=== PATIENT | female | born 1950 | race Hispanic/Latino ===

== ENCOUNTER 2020-07-22 10:13 | Observation (INO) | payer OTHER ==
[~2020-07-22] VITALS: Ht 157.5 cm; Wt 61.2 kg
[~2020-07-22 10:13] MED LIST: LIPITOR40 MG; NOVOLIN N100 UNIT/1
[2020-07-22] MEDS ORDERED: ASPIRIN 81 MG CHEW TAB PO ONE (10:30)
[2020-07-22] MEDS ORDERED: PIOGLITAZONE HC45 MG PO (10:54)
[2020-07-22] MEDS ORDERED: CLOPIDOGREL75 MG PO (10:54)
[2020-07-22] MEDS ORDERED: CARVEDILOL3.125 MG PO (10:54)
[2020-07-22] MEDS ORDERED: PACERONE200 MG PO (10:54)
[2020-07-22] MEDS ORDERED: ASPIRIN81 MG PO (10:54)
[2020-07-22] MEDS ORDERED: NEURONTIN400 MG PO (10:54)
[2020-07-22] MEDS ORDERED: ZETIA10 MG PO (10:54)
[2020-07-22] MEDS ORDERED: FEROSUL325 MG PO (10:54)
[2020-07-22] MEDS ORDERED: RAMIPRIL5 MG PO (10:54)
[2020-07-22] MEDS ORDERED: FUROSEMIDE40 MG PO (10:54)
[2020-07-22] MEDS ORDERED: NEXIUM40 MG PO (10:54)
[2020-07-22] MEDS ORDERED: ARIMIDEX1 MG PO (10:54)
[2020-07-22 11:05] LABS: BASOPHILS % 0.4 % (0.0-1.0); EOSINOPHILS # (AUTO) 0.1 (0.0-0.4); EOSINOPHILS % 1.9 % (0.0-6.0); HEMOGLOBIN 12.7 g/dL (12.0-16.0); INR 0.83; LYMPHOCYTES # (AUTO) 1.3 (1.0-3.2); LYMPHOCYTES % 24.6 % (18.0-39.1); MEAN CORPUSCULAR HEMOGLOBIN 32.5 pg (28-32); MEAN CORPUSCULAR HGB CONC 35.3 g/dL (31-35); MEAN CORPUSCULAR VOLUME 92.1 fL (81-99); MONOCYTES # (AUTO) 0.5 (0.2-0.8); MONOCYTES % 8.6 % (4.4-11.3); NEUTROPHILS # (AUTO) 3.4 (2.1-6.9); NEUTROPHILS % 64.3 % (38.7-80.0); PLATELET COUNT 203 x10e3/uL (140-360); RED BLOOD COUNT 3.91 x10e6/uL (3.6-5.1); RED CELL DISTRIBUTION WIDTH 15.1 % (11.7-14.4)
[2020-07-22 11:06] LABS: PARTIAL THROMBOPLASTIN TIME 31.5 seconds (23.8-35.5)
[2020-07-22 11:11] LABS: ALBUMIN 3.7 g/dL (3.5-5.0); ALBUMIN/GLOBULIN RATIO 1.2 (0.8-2.0); CALCIUM 8.2 mg/dL (8.4-10.2); CREATININE, SERUM 1.16 mg/dL (0.57-1.11); MAGNESIUM 1.9 MG/DL (1.3-2.1)
[2020-07-22] MEDS ORDERED: BELLADONNA ALK/PHENOBARBITAL 5 ML UDC PO ONE (11:15)
[2020-07-22] MEDS ORDERED: LIDOCAINE VISC 2% SOLN 15 ML UDC PO ONE (11:15)
[2020-07-22] MEDS ORDERED: MAGNESIUM/ALUMINUM/SIMETHICONE 30 ML UDC PO ONE (11:15)
[2020-07-22 11:39] LABS: CREATINE KINASE MB 1.1 ng/mL (0-5.0)
[2020-07-22] MEDS ORDERED: FUROSEMIDE INJ 10 MG/ML 4 ML VIAL IV ONE (14:15)
[2020-07-22] MEDS ORDERED: NITROGLYCERIN 0.4 MG SUBL SL PRN (14:15)
[2020-07-22] MEDS ORDERED: ONDANSETRON HCL INJ 2MG/ML 2ML 2 MG/ML VIAL IV PRN (14:15)
[2020-07-22 20:07] LABS: CREATINE KINASE MB 1.1 ng/mL (0-5.0)
[2020-07-22 20:10] VITALS: BP 116/64
[2020-07-22 20:24] VITALS: BP 116/64
[2020-07-22 20:31] VITALS: BP 116/64
[2020-07-23] VITALS: BP 104/50
[2020-07-23 04:35] VITALS: BP 108/57
[2020-07-23 05:06] LABS: BASOPHILS % 0.5 % (0.0-1.0); EOSINOPHILS # (AUTO) 0.1 (0.0-0.4); EOSINOPHILS % 2.1 % (0.0-6.0); HEMATOCRIT 32.3 % (34.2-44.1); HEMOGLOBIN 10.6 g/dL (12.0-16.0); LYMPHOCYTES # (AUTO) 1.1 (1.0-3.2); MEAN CORPUSCULAR HEMOGLOBIN 30.1 pg (28-32); MEAN CORPUSCULAR HGB CONC 32.8 g/dL (31-35); MEAN CORPUSCULAR VOLUME 91.8 fL (81-99); MONOCYTES # (AUTO) 0.4 (0.2-0.8); MONOCYTES % 11.7 % (4.4-11.3); NEUTROPHILS # (AUTO) 2.1 (2.1-6.9); NEUTROPHILS % 55.4 % (38.7-80.0); PLATELET COUNT 165 x10e3/uL (140-360); RED BLOOD COUNT 3.52 x10e6/uL (3.6-5.1); RED CELL DISTRIBUTION WIDTH 15.3 % (11.7-14.4)
[2020-07-23 05:29] LABS: ALBUMIN/GLOBULIN RATIO 1.1 (0.8-2.0); ANION GAP 12.1 mmol/L (8-16); CALCIUM 7.9 mg/dL (8.4-10.2); CHOL/HDL RATIO 2.5 (3.0-3.6); CREATININE, SERUM 0.96 mg/dL (0.57-1.11); POTASSIUM 4.1 mmol/L (3.5-5.1)
[2020-07-23 06:09] LABS: CREATINE KINASE MB 0.8 ng/mL (0-5.0)
[2020-07-23 08:09] VITALS: BP 106/59
[2020-07-23] MEDS ORDERED: ASPIRIN 81 MG ENTERIC COATED PO SCH (09:00)
[2020-07-23 09:06] VITALS: BP 106/59
[2020-07-23] MEDS ORDERED: ANASTROZOLE 1 MG TAB PO SCH (10:00)
[2020-07-23] MEDS ORDERED: AMIODARONE HCL 200 MG TAB PO SCH (10:00)
[2020-07-23] MEDS ORDERED: EZETIMIBE 10 MG TAB PO SCH (10:00)
[2020-07-23] MEDS ORDERED: RAMIPRIL 5 MG CAP PO SCH (10:00)
[2020-07-23] MEDS ORDERED: GABAPENTIN 400 MG CAP PO SCH (10:00)
[2020-07-23] MEDS ORDERED: CLOPIDOGREL BISULFATE 75 MG TAB PO SCH (10:00)
[2020-07-23] MEDS ORDERED: FUROSEMIDE INJ 10 MG/ML 4 ML VIAL IV ONE (10:00)
[2020-07-23] MEDS ORDERED: POTASSIUM CHLORIDE 20 MEQ TAB CR PO ONE (10:00)
[2020-07-23] MEDS ORDERED: FERROUS SULFATE 325 MG TAB PO SCH (10:00)
[2020-07-23 11:07] VITALS: BP 102/42
[2020-07-23] MEDS ORDERED: FUROSEMIDE 40 MG TAB PO SCH (12:00)
[2020-07-23] MEDS ORDERED: CARVEDILOL 3.125 MG TAB PO SCH (17:00)
[2020-07-24] MEDS ORDERED: ASPIRIN 81 MG CHEW TAB PO SCH (09:00)
[2020-07-24] MEDS ORDERED: PANTOPRAZOLE SOD 40 MG TABEC PO SCH (10:00)
== END 2020-07-23 12:34 | disposition home or self-care (01) ==
LOC: ER 10:30 → ERHOLD 14:09 → MED/SURG2 19:15
PROVIDERS: ADMIT Internal Medicine; ATTEND Internal Medicine
DX: I11.0 Hypertensive heart disease with heart failure (principal); I50.23 Acute on chronic systolic (congestive) heart failure; E11.9 Type 2 diabetes mellitus without complications; Z95.810 Presence of automatic (implantable) cardiac defibrillator; I25.10 Atherosclerotic heart disease of native coronary artery without angina pectoris; Z95.5 Presence of coronary angioplasty implant and graft; Z83.3 Family history of diabetes mellitus; Z82.49 Family history of ischemic heart disease and other diseases of the circulatory system; Z88.5 Allergy status to narcotic agent; K21.9 Gastro-esophageal reflux disease without esophagitis; Z79.4 Long term (current) use of insulin
CPT/HCPCS: 36415 ×2; 71045; 80053 ×2; 80061; 82550 ×2; 82553 ×2; 82948; 83735; 83880; 84484 ×2; 85025 ×2; 85610; 85730; 93005; 99284; G0378 ×2; J1940 ×2; U0002

== ENCOUNTER 2022-05-08 21:23 | Emergency (ER) | payer MEDICARE ==
[~2022-05-08] VITALS: Ht 157.5 cm; Wt 65.8 kg
[~2022-05-08 21:23] MED LIST changes: +ARIMIDEX1 MG PO; +ASPIRIN81 MG PO; +BASAGLAR K100 UNIT/1 SC; +CARVEDILOL3.125 MG PO; +CLOPIDOGREL75 MG PO; +ENTRESTO 24 MG1 EACH PO; +FEROSUL325 MG PO; +FUROSEMIDE40 MG PO; +KLOR-CON M1010 MEQ PO; +MEXILETINE HCL200 MG PO; +NEURONTIN400 MG PO; +NEXIUM40 MG PO; +PACERONE200 MG PO; +PIOGLITAZONE HC45 MG PO; +RAMIPRIL5 MG PO; +ZETIA10 MG PO
[2022-05-08] MEDS ORDERED: AMIODARONE 900MG 500 ML IV STA (21:52)
[2022-05-08] MEDS ORDERED: SODIUM CHLORIDE 0.9% 500ML 500 ML IV STA (21:54)
[2022-05-08] MEDS ORDERED: FENTANYL CITRATE/PF 100MCG/2 ML INJ IV STA (21:54)
[2022-05-08 22:00] LABS: BASOPHILS % 0.5 % (0.0-1.0); EOSINOPHILS # (AUTO) 0.1 (0.0-0.4); HEMATOCRIT 34.8 % (34.2-44.1); LYMPHOCYTES # (AUTO) 1.2 (1.0-3.2); LYMPHOCYTES % 19.8 % (18.0-39.1); MEAN CORPUSCULAR HEMOGLOBIN 29.2 pg (28-32); MEAN CORPUSCULAR HGB CONC 31.6 g/dL (31-35); MEAN CORPUSCULAR VOLUME 92.3 fL (81-99); MONOCYTES # (AUTO) 0.4 (0.2-0.8); MONOCYTES % 6.2 % (4.4-11.3); NEUTROPHILS # (AUTO) 4.3 (2.1-6.9); NEUTROPHILS % 72.2 % (38.7-80.0); PLATELET COUNT 215 x10e3/uL (140-360); RED BLOOD COUNT 3.77 x10e6/uL (3.6-5.1); RED CELL DISTRIBUTION WIDTH 16.4 % (11.7-14.4)
[2022-05-08] MEDS ORDERED: AMIODARONE HCL 150 MG/100 ML BAG IV ONE (22:00)
[2022-05-08 22:03] LABS: ALBUMIN 3.3 g/dL (3.5-5.0); ANION GAP 14.4 mmol/L (8-16); CALCIUM 9.2 mg/dL (8.4-10.2); CREATININE, SERUM 1.18 mg/dL (0.57-1.11); POTASSIUM 5.4 mmol/L (3.5-5.1)
[2022-05-08] MEDS ORDERED: ONDANSETRON HCL INJ 2MG/ML 2ML 2 MG/ML VIAL ONE (22:07)
[2022-05-08] MEDS ORDERED: FENTANYL CITRATE/PF 100MCG/2 ML INJ ONE (22:07)
[2022-05-08] MEDS ORDERED: AMIODARONE HCL 100 ML IV ONE (22:08)
[2022-05-08] MEDS ORDERED: AMIODARONE 900MG 500 ML IV ONE (22:08)
[2022-05-08] MEDS ORDERED: CALCIUM GLUCONATE 10% INJ 0.465 MEQ/ML VIAL IV STA (22:19)
[2022-05-08] MEDS ORDERED: SODIUM BICARBONATE 8.4% INJ 50 ML SYR IV STA (22:19)
[2022-05-08] MEDS ORDERED: ALBUTEROL SULF 0.083% NEB SOLN 3 ML NEB NEB STA (22:19)
[2022-05-08] MEDS ORDERED: INSULIN REGULAR, HUMAN 100 UNIT/1 ML IV ONE (22:30)
[2022-05-08] MEDS ORDERED: DEXTROSE 50% SYRINGE 50 ML IV ONE (22:30)
[2022-05-08] MEDS ORDERED: FUROSEMIDE INJ 10 MG/ML 10 ML VIAL IV ONE (22:30)
[2022-05-08 22:31] LABS: CREATINE KINASE MB 1.1 ng/mL (0-5.0)
[2022-05-08] MEDS ORDERED: MAGNESIUM SULF 1GRAM/DEXTROSE 100 ML IV STA (22:58)
[2022-05-08] MEDS ORDERED: FENTANYL CITRATE/PF 100MCG/2 ML INJ IV ONE (23:00)
[2022-05-08] MEDS ORDERED: CALCIUM CHLORIDE 10% SYRINGE 10 ML IV ONE (23:08)
== END 2022-05-09 00:24 | disposition short-term general hospital (02) ==
LOC: ER 21:28
DX: R07.9 Chest pain, unspecified (principal); I47.20 Ventricular tachycardia, unspecified; E87.5 Hyperkalemia; I11.0 Hypertensive heart disease with heart failure; I50.9 Heart failure, unspecified; E11.9 Type 2 diabetes mellitus without complications; I25.2 Old myocardial infarction; R94.31 Abnormal electrocardiogram [ECG] [EKG]; Z88.6 Allergy status to analgesic agent; Z88.1 Allergy status to other antibiotic agents; Z20.822 Contact with and (suspected) exposure to COVID-19; Z79.4 Long term (current) use of insulin; Z79.02 Long term (current) use of antithrombotics/antiplatelets; Z79.82 Long term (current) use of aspirin; Z79.899 Other long term (current) drug therapy; Z95.810 Presence of automatic (implantable) cardiac defibrillator
CPT/HCPCS: 36415; 71045; 80053; 82550; 82553; 82948; 83690; 83880; 84484; 85025; 93005; 94760; 99284; J1817; J2405; J3010; J3475; J7040; J7799; U0002; J0610